=== PATIENT | male | born 1975 | race Caucasian/White ===

== ENCOUNTER 2023-01-09 16:48 | Emergency (ER) | payer MEDICAID ==
[~2023-01-09] VITALS: Ht 175.3 cm; Wt 69.4 kg
[2023-01-09 20:16] VITALS: BP 121/64; TEMP 98.7; O2SAT 100
== END 2023-01-09 20:17 | disposition home or self-care (01) ==
LOC: ER 16:52
DX: R51.9 Headache, unspecified (principal); M54.2 Cervicalgia; V89.2XXA Person injured in unspecified motor-vehicle accident, traffic, initial encounter; Y93.89 Activity, other specified; Y92.411 Interstate highway as the place of occurrence of the external cause; Y99.8 Other external cause status
CPT/HCPCS: 70450-TC; 72125-TC